=== PATIENT | male | born 1955 | race Caucasian/White ===

== ENCOUNTER 2024-09-04 07:00 | Outpatient (NON) | payer MEDICARE, SELFPAY ==
--- OUTSIDE RECORDS SUMMARY | 2024-09-05 11:56 | XMS_ITS | Encounter Summary ---
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 Name Role Phone Elio Ortiz MD Primary Care Provider [phone] Reason for Visit * Reason Onset Date Comments Medication Request 08/05/2024 Encounter Details Date Type Department Care Team (Late st Contact Info) Description 08/05/2024 Telephone [facility] [address] [place] [address] Elio Ortiz MD [address] [facility] [address] [place] [address] Medication Request Social History Tobacco Use Types Packs/Day Years Used Date Smoking Tobacco: Never Smokeless Tobacco: Never Alcohol Use Standard Drinks/Week Comments Yes 0 (1 standard drink = 0.6 oz pur e alcohol) AUDIT-C Answer Date Recorded Q1: How often do you have a drink containing alc ohol? 2-4 times a month 03/12/2023 Q2: How many drinks containi ng alcohol do you have on a typical day when you are drinking? 1 or 2 03/12/2023 Q3: How often do you have si x or more drinks on one occasion? 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 No * Telephone Encounter - Natalia Paris MA - 08/05/2024 2:34 PM CDT Attempted to contact pt. No answer. Lvm to return call to office. * Telephone Encounter - Natalia Paris MA - 08/05/2024 9:25 AM CDT Reviewing chart it looks like pt has not been on meloxicam in the past. Is this something you wouldbe willing to prescribed? Reviewing ortho OV note it states Shall his symptoms fail to improve wemay consider an MRI of thigh for further evaluation. Are you aware of how long he would have to wait for another injection or do you recommend that he continue to try and reach out to ortho? Please advise. Thanks * Telephone Encounter - Tracey Singh - 08/05/2024 9:01 AM CDT Medication Question/Clarification Medication Name(s)/Dose: Meloxicam What is the question or clarification needed? Patient is asking if Dr. Ortiz can call in the above medication for his hip pain, he states when he gets the injections but once it wears off he has pain. He asking if he can try the meloxicam to see if it helps. He also states that his last injection with he sports medicine was 05/28/23, he is also asking when he can get another injection because he can't get through to the sports medicine office If needed, Pharmacy(s) medication(s) should be sent to: on file Additional Comments: please call patient to advise if this can be done Does message need to be routed? Yes-Action Needed documented in this encounter Plan of Treatment Not on file documented as of this encounter Visit Diagnoses Not on filedocumented in this encounter Care Teams After School Program Teacher Relationship Specialty Start Date End Date Elio Ortiz MD [address] [place] [address] PCP - General Family Medicine 04/14/19 documented as of this encounter
--- OUTSIDE RECORDS SUMMARY | 2024-09-05 11:56 | XMS_ITS | Clinical Summary ---
Author Organization [address] Address [address] [place] [address] Care Team Providers Care Public Health Representative Name Role Phone Elio Ortiz MD Primary Care Provider [phone] Allergies No known active allergies Medications aspirin 81 mg tablet Take one by mouth one time per day 0 0 007 Active blood glucose diagnostic (glucose blood) stripIndication s:Controlled type 2 diabetes mellitus without complication, without long-term current use of insulin (HCC) Testing TID and PRN 100 each 11 023 Active lancets miscIndications :Controlled type 2 diabetes mellitus without complication, without long-term current use of insulin (HCC) 100 each by other route as directed 100 each 1 023 Active blood-glucose meter (OneTouch Ultra2 Meter) miscIndications :Controlled type 2 diabetes mellitus without complication, without long-term current use of insulin (HCC) USE TO TEST BLOOD SUGAR THREE TIMES A DAY 100 each 3 023 Active ketoconazole (NIZORAL) 2 % shampoo 023 Active sildenafiL, pulm.hypertensi on, (REVATIO) 20 mg tabletIndicatio ns:Erectile dysfunction, unspecified erectile dysfunction type TAKE 1 TABLET(20 MG) BY MOUTH DAILY NEEDED FOR ERECTILE DYSFUNCTION 12 tablet 1 024 Active indapamide (LOZOL) 1.25 mg tabletIndicatio ns:Hypertension , essential TAKE 1 TABLET BY MOUTH EVERY DAY 90 tablet 3 024 Active hydrOXYzine (ATARAX) 25 mg tablet Take 1 tablet (25 mg total) by mouth every 8 (eight) hours as needed for anxiety 30 tablet 1 024 Active atorvastatin (LIPITOR) 40 mg tablet Take 1 tablet (40 mg total) by mouth daily 90 tablet 4 024 2024 Active potassium chloride ER 10 mEq CR tabletIndicatio ns:Hypertension , essential TAKE 1 TABLET BY MOUTH EVERY DAY 100 tablet 1 025 Active atenoloL (TENORMIN) 100 mg tablet TAKE 1 TABLET BY MOUTH EVERY DAY 90 tablet 2 025 Active losartan (COZAAR) 100 mg tabletIndicatio ns:Essential hypertension TAKE 1 TABLET BY MOUTH EVERY DAY 90 tablet 2 025 Active meloxicam (MOBIC) 15 mg tablet Take 1 tablet (15 mg total) by mouth daily 30 tablet 11 025 2025 Active semaglutide (Ozempic) 2 mg/dose (8 mg/3 mL) pen injector injection INJECT 2 MG SUBCUTANEOUSLY ONE TIME PER WEEK 3 mL 1 Active semaglutide (OZEMPIC) 2 mg/dose (8 mg/3 mL) pen injector injection Inject 2 mg under the skin once a week 3 mL 025 2024 Discontinued Active Problems Problem Noted Date Diagnosed Date Primary osteoarthritis of left hip 05/19/2024 Encounter for Medicare annual wellness exam 09/2023 Assessment & Plan (03/18/2024 8:50 AM COSTUME MISTRESS): Visit preventive in nature. We reviewed medications, chronic conditions, risk factors, lifestyle recommendations. Reviewed immunization recommendations. Follow-up in 6 months for chronic conditions and 1 year for annual wellness. Type 2 diabetes mellitus with hyperlipidemia 09/2023 Assessment & Plan (03/18/2024 10:10 AM COSTUME MISTRESS): LDL and triglycerides above goal. Will stop simvastatin and start atorvastatin. Reviewed scheduling and side effects. Will monitor response. Of course reviewed lifestyle recommendations. Screening for prostate cancer 03/18/2024 Assessment & Plan (03/18/2024 8:50 AM COSTUME MISTRESS): PSA stable. Will continue to monitor. Class 2 severe obesity due t o excess calories with serious comorbidity and body mass index (BMI) of 36.0 to 36.9 in adult 03/18/2024 Assessment & Plan (03/18/2024 10:10 AM COSTUME MISTRESS): He will continue to work on dietary improvements and weight loss. Colon cancer screening 03/18/2024 Assessment & Plan (03/18/2024 8:52 AM COSTUME MISTRESS): Will be due for follow-up colonoscopy in May. Referral placed. Chronic left hip pain 03/18/2024 Assessment & Plan (03/18/2024 10:11 AM COSTUME MISTRESS): Neurovascularly intact. Will obtain x-ray. Referral placed to system support specialist. Appreciate their expertise. Hypertension associated with diabetes 09/11/2023 Assessment & Plan (03/18/2024 10:10 AM COSTUME MISTRESS): Well controlled on atenolol, losartan. Reviewed lifestyle recommendations. Will continue to monitor. Assessment & Plan (09/11/2023 9:34 AM CDT): Controlled. Will cut back to 1 tablet of indapamide. Will monitor BP at home. If not at goal will increase to 2 daily. Will continue to monitor renal function. Also highly encouraged heart healthy diet. Anemia 09/11/2023 Assessment & Plan (09/11/2023 9:37 AM CDT): Mild anemia after blood donation. Will recheck CBC upon return. Red flags reviewed. ORTEGA (obstructive sleep apnea) 09/11/2023 Assessment & Plan (03/18/2024 10:09 AM COSTUME MISTRESS): 100% compliant with CPAP and will continue. Follows with sleep medicine specialist. Assessment & Plan (09/11/2023 9:39 AM CDT): 100% compliant with CPAP and will continue. Controlled type 2 diabetes joseline albarado without complication, without long-term current use of insulin 10/17/2022 Assessment & Plan (03/18/2024 10:09 AM COSTUME MISTRESS): Tolerating Ozempic. Would like added benefit of weight loss. Will uptitrate Ozempic to 2 mg weekly and continue monitoring. Monitor blood glucose. Monitor for hypoglycemia. Red flags reviewed. Assessment & Plan (09/11/2023 9:33 AM CDT): Controlled. Continue with Ozempic. Will continue to monitor. Hyperlipidemia 04/26/2015 Overview (08/17/2016): HYPERLIPIDEMIA NEC/NOS Hypertension 04/26/2015 Overview (08/17/2016): HYPERTENSION NOS Anxiety state 04/26/2015 Overview (08/17/2016): ANXIETY STATE NOS Assessment & Plan (03/18/2024 10:11 AM COSTUME MISTRESS): Discussed options. Will initiate p.r.n. hydroxyzine. Reviewed the scheduling and side effects. Red flags reviewed. Will monitor response. 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 No changes. Will continue to monitor. 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 Overview (08/18/2016): ALIZE HEART ANOMALY NEC Encounters Date Type Department Care Team Description 08/05/2024 Orders Only [facility] Primary Care at [address] [address] Elio Ortiz MD 08/05/2024 Telephone [facility] [address] [place] [address] Elio Ortiz MD Medication Request 07/23/2024 Telephone [facility] [place] [address] [place] [address] Elio Ortiz MD Prior Auth (Ozempic) 07/10/2024 9:30 AM COSTUME MISTRESS Office Visit [facility] [address] [address] [place] [address] Elizabeth Nicole MD Obstructive sleep apnea (adult) (pediatric) (Primary Dx); Hypersomnia with sleep apnea; Severe obesity (BMI 35.0-35.9 with comorbidity) (HCC) from Last 3 Months Immunizations Immunization Administration Dates Next Due Influenza, Quad, Adjuvantate d, Intramuscular 02/14/2022 Influenza, Quadrivalent, Hig h Dose, Preservative Free, Intrr 02/21/2021,02/11/2020 Influenza, Quadrivalent, Spl it, Intramuscular 02/09/2023,02/19/2019 Influenza, Quadrivalent, Spl it, Preservative Free, Intradermal 04/26/2015 Influenza, Quadrivalent, Spl it, Preservative Free, Intramuscular 02/14/2018 Influenza, Trivalent, High D ose, Split, Preservative Free, Intramuscular 02/07/2024,02/11/2020,01/29/2019,04/17 Influenza, Unspecified 02/13/2022,02/21/2021 Pfizer SARS-CoV-2 Monovalent Vaccination (12+ Yrs) PURPLE 02/21/2021,07/12/2020,07/12/2020,06/23 Pfizer Sars-Cov-2 Bivalent V accination (12+ YRS) 02/07/2024 Pneumococcal Conjugate PCV 13 02/21/2021, 018 Pneumococcal Polysaccharide PPV23 02/21/2021 RSV Vaccine, Pref, Recombina nt, Subunit, Adjuvanted, PF, IM (Arexvy) 03/07/2023 Td, adsorbed 05/14/1997 Tdap 06/10/2008 ZOSTER LIVE 01/01/2019 ZOSTER Recombinant 04/14/2019,01/01/2019 Surgical History Surgery Date Site/Laterality Comments HERNIA REPAIR Hernia repair TONSILLECTOMY Tonsillectomy OTHER SURGICAL HISTORY 1975 fx R hand: multiple surgery [place] FLUORO GUIDED INJECTION H IP LEFT 05/28/2024 Left Medical History Medical History Date Comments Asthma Asthma Hx Other Medical fx R hand Hyperlipidemia Hypertension ORTEGA on CPAP Family History Medical History Relation Name Comments Other Father Cancer -sarcoma ; Cause of : Cancer -sarcoma Kidney disease Mother Mom Renal disease ; Other Mother Mom RHD; Cause of D eath: RHD Arthritis Sister 2 Sasha Other Sister 2 Sasha Alive and well; Hypertension Sister 3 [place] Hypertension; Relation Name Status Comments Father (Age 68) Mother Mom (Age 42) Sister 1 Alive Sister 2 Sasha Alive Sister 3 [place] Social History Tobacco Use Types Packs/Day Years Used Date Smoking Tobacco: Never Smokeless Tobacco: Never Tobacco Cessation:Counseling Given: Not Answered Alcohol Use Standard Drinks/Week Comments Yes 0 [...] on file Legal Sex Male 3:51 PM COSTUME MISTRESS Gender Identity Not on file Sexual Orientation Not on file Obstetrics History Last Filed Vital Signs Vital Sign Reading Time Taken Comments Blood Pressure 129/80 07/10/2024 9:28 AM COSTUME MISTRESS Pulse 77 07/10/2024 9:28 AM COSTUME MISTRESS Temperature 36.7 C (98 F) 03/18/2024 8:30 AM COSTUME MISTRESS Respiratory Rate 20 03/18/2024 8:30 AM COSTUME MISTRESS Oxygen Saturation 94% 07/10/2024 9:28 AM COSTUME MISTRESS Inhaled Oxygen Concentration - - Weight 109.3 kg (241 lb) 07/10/2024 9:28 AM COSTUME MISTRESS Height 168.9 cm (5' 6.5 ) 07/10/2024 9:28 AM COSTUME MISTRESS Body Mass Index 38.32 07/10/2024 9:28 AM COSTUME MISTRESS Plan of Treatment Health Maintenance Due Date Last Done Comments Hepatitis B Screening 02/01[birth year]1974 DTaP/Tdap/Td Vaccine (2 - Td or Tdap) 06/10/2018 06/10/2008, 05/14/1997 Colon Cancer Screening-Colonoscopy 05/28/2024 05/28/2014 Covid-19 Vaccine (2023-2 5 season) 2024 02/07/2024, 02/07/2024, 06/12/2023, Additional history exists Hemoglobin A1C 09/11/2024 03/14/2024, 08/13, 03/09/2023, Additional history exists Dilated Eye Exam 02/25/2025 02/26/2024, , 02/26/2024, Additional history exists Albumin Creatinine Ratio, Urine 03/14/2025 03/14/2024, 03/09/2023, 02/24/2021 Lipid Panel 03/14/2025 03/14/2024, 08/13, 03/09/2023, Additional history exists eGFR 03/14/2025 03/14/2024, 08/13, 03/09/2023, Additional history exists Depression Screening 03/18/2025 03/18/2024, 09/11/2023, 03/12/2023, Additional history exists Fall Risk Assessment 03/18/2025 03/18/2024, 09/11/2023, 03/12/2023, Additional history exists Foot Exam 03/18/2025 03/18/2024, 10/12, 02/24/2021 Well Visit 65+ 03/18/2025 03/18/2024, 08/14, 03/12/2023, Additional history exists Prostate Cancer Screening-PSA 03/14/2026, 03/15/2022, 07/02/2020, Additional history exists Colon Cancer Screening-CT Colonography Discontinued 05/28/2014 Colon Cancer Screening-DNA Stool Discontinued 05/28/19 Colon Cancer Screening-FIT Discontinued 05/28/2014 Colon Cancer Screening-Sigmoidoscopy Discontinued 05/28/2014 Zoster Vaccine Completed 04/14/2019, 12/13, 01/01/2019 Pneumococcal vaccine 65+ Completed 021, 02/21/2021, 02/14/2018 Hepatitis C Screening Completed 02/24/2021 Influenza Vaccine Completed 02/07/2024, , 02/14/2022, Additional history exists Procedures Procedure Name Priority Date/Time Associated Diagnosis Comments EGFR Routine 03/14/2024 8:59 AM CDT Screening for prostate cancer Controlled type 2 diabetes mellitus with stage 3 chronic kidney disease, without long-term current use of insulin (HCC) Hypertension associated with diabetes (HCC) Type 2 diabetes mellitus with hyperlipidemia (HCC) Encounter for Medicare annual wellness exam Anemia, unspecified type Class 2 severe obesity due to excess calories with serious comorbidity and body mass index (BMI) of 36.0 to 36.9 in adult ([facility]) HEMOGLOBIN A1C Routine 03/14/2024 8:59 AM CDT Screening for prostate cancer Controlled type 2 diabetes mellitus with stage 3 chronic kidney disease, without long-term current use of insulin (HCC) Hypertension associated with diabetes (HCC) Type 2 diabetes mellitus with hyperlipidemia (HCC) Encounter for Medicare annual wellness exam Anemia, unspecified type Class 2 severe obesity due to excess calories with serious comorbidity and body mass index (BMI) of 36.0 to 36.9 in adult ([facility]) LIPID PANEL Routine 03/14/2024 8:59 AM CDT Screening for prostate cancer Controlled type 2 diabetes mellitus with stage 3 chronic kidney disease, without long-term current use of insulin (HCC) Hypertension associated with diabetes (HCC) Type 2 diabetes mellitus with hyperlipidemia (HCC) Encounter for Medicare annual wellness exam Anemia, unspecified type Class 2 severe obesity due to excess calories with serious comorbidity and body mass index (BMI) of 36.0 to 36.9 in adult (HCC) ALBUMIN CREATININE RATIO, URINE Routine 03/14/2024 8:59 AM CDT Screening for prostate cancer Controlled type 2 diabetes mellitus with stage 3 chronic kidney disease, without long-term current use of insulin (HCC) Hypertension associated with diabetes (HCC) Type 2 diabetes mellitus with hyperlipidemia (HCC) Encounter for Medicare annual wellness exam Anemia, unspecified type Class 2 severe obesity due to excess calories with serious comorbidity and body mass index (BMI) of 36.0 to 36.9 in adult (HCC) PSA SCREEN Routine 03/14/2024 8:59 AM CDT Screening for prostate cancer Controlled type 2 diabetes mellitus with stage 3 chronic kidney disease, without long-term current use of insulin (HCC) Hypertension associated with diabetes (HCC) Type 2 diabetes mellitus with hyperlipidemia (HCC) Encounter for Medicare annual wellness exam Anemia, unspecified type Class 2 severe obesity due to excess calories with serious comorbidity and body mass index (BMI) of 36.0 to 36.9 in adult (HCC) DIABETIC EYE EXAM Routine 02/26/2024 3:1 0 PM CDT HEPATITIS C ANTIBODY Routine 02/24/2021 10:55 AM CDT Initial Medicare annual wellness visit Encounter for hepatitis C screening test for low risk patient COLONOSCOPY REPORT 05/28/2014 from Last 3 Months or Most Recently Relevant to Health Maintenance Results * eGFR (03/14/2024 8:59 AM CDT) eGFR 64 >=60 mL/min/1. 73 m2 Comment: Interpretive Data Reference Interval Normal >/= 90 mL/min/1.73m2 Mildly decreased* 60 - 89 mL/min/1.73m2 Mildly to moderately decreased 45 - 59 mL/min/1.73m2 Moderately to severely decreased 30 - 44 mL/min/1.73m2 Severely decreased 15 - 29 mL/min/1.73m2 Kidney Failure < 15 mL/min/1.73m2 *Relative to young adult level Estimated glomerular filtration rate is determined by the 2020 CKD-EPI equation recommended by the National Kidney Foundation (A Unifying Approach to GFR Estimation: Recommendations of the NKF-ASK Task Force on Reassessing the Inclusion of Race in Diagnosing Kidney Disease, JASN 2020). The CKD-EPI equation should not be used for patients with unstable renal function and has not been validated in children and those over 70. Current interpretive data was last reviewed 2021. Testing performed by: [facility], [address] [place] [address], [place]., [address] Blood 03/14/2024 8:59 AM CDT 03/14/2024 12:16 PM CDT Magali Olson NP LAB BLOOD ORDERABLES Final Result Performing Organization Address City/[facility]/ZIP Co de Phone Number SIL KENDRICK ([place]) [address] [place] [address] * PSA screen (03/14/2024 8:59 AM CDT) PSA-Total 0.51 <=5.40 ng/mL Comment: Interpretive Data AGE SEX REFERENCE INTERVAL 0 minutes-150 years Female None 0 minutes-49 years Male None 50-59 years Male 0-3.90 60-69 years Male 0-5.40 70-79 years Male 0-6.20 80-150 years Male 0-6.20 The Maria De Jesus PSA Total assay procedure was used. Results from different manufacturers or methods may not be comparable. Serial testing should be performed using the same method. Current interpretive data last revised 21. Testing performed by: [address], [address] Blood 03/14/2024 8:59 AM CDT 03/14/2024 12:05 PM CDT Magali Olson NP LAB BLOOD ORDERABLES Final Result Performing Organization Address [facility] de Phone Number SIL KENDRICK ([place]) [address] [facility] [place] [address] * (ABNORMAL) Albumin Creatinine Ratio, Urine (03/14/2024 8:59 AM CDT) Albumin Ur 70.8 mg/L Comment: Interpretive Data No reference range established. Current interpretive data was last revised 2018. Testing performed by: [address] [address] Creatinine Ur 110.5 mg/dL SIL KENDRICK ([place]) Comment: Interpretive Data No reference range established. Current interpretive data was last revised 2018. Testing performed by: [facility], [address], [place]., [address] Albumin Creatinine Ratio, Ur 64(H) 1 - 29 mg/g SIL KENDRICK ([place]) Comment:Testing performed by : [facility], [address] [place] [address]., [address] Urine 03/14/2024 8:59 AM CDT 03/14/2024 12:05 PM CDT Magali Olson NP LAB URINE ORDERABLES Final Result SIL KENDRICK ([place]) [address] [facility] [place] [address] * (ABNORMAL) Hemoglobin A1c (03/14/2024 8:59 AM CDT) Hgb A1C 6.3(H) 4.0 - 5.6 % Comment:Testing performed by : [facility], [address] [place] [address]., [address] Estimated Average Glucose 134 mg/dL SIL KENDRICK ([place]) Comment: The ADA recommends reporting an estimated Average Glucose (eAG) with all Hemoglobin A1c results using the equation derived from a study of 507 normal and diabetic adults. Minority populations were underrepresented and children were not included. (Diabetes Care 31:0209-7746, 2008). The eAG is not equivalent to a fasting glucose. Testing performed by: [facility], [address] [place] [address]., [address] Blood 03/14/2024 8:59 AM CDT 03/14/2024 12:05 PM CDT Magali Olson NP LAB BLOOD ORDERABLES Final Result Performing Organization Address City/[facility]/ZIP Co de Phone Number SIL KENDRICK ([place]) [address] [facility] [place] [address] * (ABNORMAL) Lipid panel (03/14/2024 8:59 AM CDT) Cholesterol 167 30 - 199 mg/dL Comment: Interpretive Data Ages < or = 19 years Acceptable: <170 mg/dL Borderline high: 170-199 mg/dL High: >or= 200 mg/dL Ages > or = 20 years Desirable: <200 mg/dL Borderline high: 200-239 mg/dL High: >or= 240 mg/dL Literature References: 1. Expert Panel on Integrated Guidelines for Cardiovascular Health and Risk Reduction in Children and Adolescents. Pediatrics 2011;128:S213 2. NCEP Expert Panel. Circulation 2004;110:227 Current Interpretive Data was last revised on 2018. Testing performed by: [facility], [address] [place] [address]., [address] Triglycerides 280(H) <=149 mg/dL [facility] ([place]) Comment: Interpretive Data Ages < or = 9 years Acceptable: <75 mg/dL Borderline high: 75-99 mg/dL High: >or= 100 mg/dL Ages 10 to 20 years Acceptable: <90 mg/dL Borderline high: 90-129 mg/dL High: >or= 130 mg/dL Ages > or = 20 years Desirable: <150 mg/dL Borderline high: 150-199 mg/dL High: 200-499 mg/dL Very high: >or= 499 mg/dL Literature References: 1. Expert Panel on Integrated Guidelines for Cardiovascular Health and Risk Reduction in Children and Adolescents. Pediatrics 2011;128:S213 2. NCEP Expert Panel. Circulation 2004;110:227 Current Interpretive Data was last revised on 2018. Testing performed by: [address] [address] HDL 34(L) >=40 mg/dL [facility] ([place]) Comment: Interpretive Data Ages < or = 19 years Acceptable: >45 mg/dL Borderline low: 40-45 mg/dL Low: <40 mg/dL Ages > or = 20 years Desirable: >or= 60 mg/dL Low: <40 mg/dL Literature References: 1. Expert Panel on Integrated Guidelines for Cardiovascular Health and Risk Reduction in Children and Adolescents. Pediatrics 2011;128:S213 2. NCEP Expert Panel. Circulation 2004;110:227 Current Interpretive Data was last revised on 2018. Testing performed by: [address] [address] LDL, calculated 86 <=129 mg/dL [facility] ([place]) Comment: Interpretive Data Ages < or = 19 years Acceptable: <110 mg/dL Borderline high: 110-129 mg/dL High: >or= 130 mg/dL Ages > or = 20 years Optimal: <100 mg/dL Near optimal: 100-129 mg/dL Borderline high: 130-159 mg/dL High: >160 mg/dL Calculated using the Harmeet LDL-C estimating equation. This equation was implemented on 2024. Prior to this date LDL-C was estimated using the Friedewald equation. Literature References: 1. Expert Panel on Integrated Guidelines for Cardiovascular Health and Risk Reduction in Children and Adolescents. Pediatrics 2011;128:S213 2. NCEP Expert Panel. Circulation 2004;110:227 3. Harmeet M et al. [place] Cardiol. 2020 September 11;5(5):540-548. doi: 10.1001/jamacardio.2020.0013 Current Interpretive Data was last revised on 2024. Testing performed by: [address] [address] Non-HDL Cholesterol 133 mg/dL SIL KENDRICK ([place]) Comment: Interpretive Data Ages < or = 19 years Acceptable: <120 mg/dL Borderline high: 120-144 mg/dL High: >145 mg/dL Ages > or = 20 years When triglycerides are >200 mg/dL, Non-HDL cholesterol is a secondary target of therapy with treatment goals that are 30 mg/dL greater than the LDL cholesterol target. Literature References: 1. Expert Panel on Integrated Guidelines for Cardiovascular Health and Risk Reduction in Children and Adolescents. Pediatrics 2011;128:S213 2. NCEP Expert Panel. Circulation 2004;110:227 Current Interpretive Data was last revised on 2018. Testing performed by: [facility], [address] [place] [address]., [address] Chol/HDL ratio 5 ART KENDRICK ([place]) Comment:Testing performed by : [facility], [address] [place] [address]., [address] Blood 03/14/2024 8:59 AM CDT 03/14/2024 12:05 PM CDT us Magali Olson NP LAB BLOOD ORDERABLES Final Result SIL KENDRICK ([place]) [address] [facility] Department [place] [address] * Diabetic Eye Exam (02/26/2024 3:10 PM CDT) Result [facility] Historical Provider HEALTH MAINTENANCE Final Result * Hepatitis C antibody (02/24/2021 10:55 AM CDT) Hep C Ab Nonreactive Nonreactive [facility]IL [facility] Comment: Interpretive Data Nonreactive: Antibodies to HCV not detected. Does NOT exclude the possibility of recent exposure to HCV. Equivocal: Equivocal for HCV antibodies. Supplemental molecular testing will be automatically performed to determine infection status in accordance with current CDC screening recommendations. Reactive: Positive for HCV antibodies. This may represent current or past HCV infection. Supplemental molecular testing will be automatically performed to determine current infection status in accordance with current CDC screening recommendations. Interpretive data was last revised on 2019. Blood 02/24/2021 10:5 5 AM CDT 02/24/2021 5:36 PM CDT Result [facility] Magali Olson NP LAB MICROBIOLOGY - GENERAL ORDERABLES Final Result SIL WEST [address] Department [place] [address] * COLONOSCOPY REPORT (05/28/2014) Anatomical Region Laterality Modality Other Narrative 05/28/2014 Ordered by an unspecified provider. Result [facility] Historical Provider GI PROCEDURE ORDERABLES F inal Result from Last 3 Months or Most Recently Relevant to Health Maintenance Insurance [facility] [place] [address] [address] [place] [address] [employer] MEDICARE GOLD Care Teams Public Health Representative Relationship Specialty Start Date End Date Elio Ortiz MD [address] [place] [address] PCP - General Family Medicine 04/14/19
--- OUTSIDE RECORDS SUMMARY | 2024-09-05 11:56 | XMS_ITS | Clinical Summary ---
Author Organization [facility] [address] [place] [address] [place] [id number] Care Team Providers Care In Store Demonstrator Name Role Phone Elio Ortiz MD Primary Care Provider [phone] Immunizations Immunization Administration Dates Next Due (PFIZER)(12 YR UP) COVID-19 VACCINE - EMERGENCY USE AUTHORIZATION, MRNA, [id number](PF) 30 MCG/0.3 ML IM SUSP 07/12/2020,06/23/2020 Social History Tobacco Use Types Packs/Day Years Used Date Smoking Tobacco: Never Assessed Sex and Gender Information Value Date Recorded Sex Assigned at Not on file Legal Sex Male 10:55 PM CDT Gender Identity Not on file Sexual Orientation Not on file Plan of Treatment Health Maintenance Due Date Last Done Comments DTAP/TDAP/TD VACCINES (1 - Tdap) 02/01/1975 COLORECTAL SCREENING 02/01/2001 Colorectal Cancer Screening 02/01/2001 FIT-DNA Q 3 years 02/01/2001 FIT/FOBT Q 1 year 02/01/2001 Flex Sig/CT Colonography Q 5 years 02/01/2001 PNEUMOCOCCAL VACCINE 50+ YEA RS (1 of 1 - PCV) 02/01/2006 ZOSTER VACCINE (1 of 2) 02/01/2006 INFLUENZA VACCINE (#1) 2023 COVID-19 Vaccine (3 - 2023- season) 01/13/202405/2020, 06/23/2020 RSV VACCINE (60+ or ) (1 - 1-dose 75+ series) 02/01/2031 Insurance [employer] BLUE PREFERRED Care Teams In Store Demonstrator Relationship Specialty Start Date End Date Elio Ortiz MD PCP - General Family Practice 07/12/20
--- OUTSIDE RECORDS SUMMARY | 2024-09-05 11:56 | XMS_ITS | Referral Summary ---
Author Organization [address] Address [address] [place] [address] Care Team Providers Care Motor Equipment Captain Name Role Phone Elio Ortiz MD Primary Care Provider [phone] Encounters Date Type Department Care Team Description 08/05/2024 Orders Only [facility] Primary Care at [address] [address] Elio Ortiz MD 08/05/2024 Telephone [facility] [address] [address] Elio Ortiz MD Medication Request 07/23/2024 Telephone [facility] [address] [address] Elio Ortiz MD Prior Auth (Ozempic) 07/10/2024 9:30 AM AUTOPSY PATHOLOGIST Office Visit [facility] [address] [facility] [address] [address] Elizabeth Nicole MD Obstructive sleep apnea (adult) (pediatric) (Primary Dx); Hypersomnia with sleep apnea; Severe obesity (BMI 35.0-35.9 with comorbidity) (HCC) from Last 3 Months Allergies No known active allergies Medications aspirin 81 mg tablet Take one by mouth one time per day 0 0 007 Active blood glucose diagnostic (glucose blood) stripIndication s:Controlled type 2 diabetes mellitus without complication, without long-term current use of insulin ([facility]) Testing TID and PRN 100 each Active lancets miscIndications :Controlled type 2 diabetes mellitus without complication, without long-term current use of insulin ([facility]) 100 each by other route as directed 100 each 023 Active blood-glucose meter (OneTouch Ultra2 Meter) miscIndications :Controlled type 2 diabetes mellitus without complication, without long-term current use of insulin ([facility]) USE TO TEST BLOOD SUGAR THREE TIMES [...] as needed for anxiety 30 tablet 1 Active atorvastatin (LIPITOR) 40 mg tablet Take 1 tablet (40 mg total) by mouth daily 90 tablet 4 024 2024 Active potassium chloride ER 10 mEq CR tabletIndicatio ns:Hypertension , essential TAKE 1 TABLET BY MOUTH EVERY DAY 100 tablet 1 025 Active atenoloL (TENORMIN) 100 mg tablet TAKE 1 TABLET BY MOUTH EVERY DAY 90 tablet 2 Active losartan (COZAAR) 100 mg tabletIndicatio ns:Essential hypertension TAKE 1 TABLET BY MOUTH EVERY DAY 90 tablet 2 Active meloxicam (MOBIC) 15 mg tablet Take 1 tablet (15 mg total) by mouth daily 30 tablet 11 025 2025 Active semaglutide (Ozempic) 2 mg/dose (8 mg/3 mL) pen injector injection INJECT 2 MG SUBCUTANEOUSLY ONE TIME PER WEEK 3 mL 1 025 Active semaglutide (OZEMPIC) 2 mg/dose (8 mg/3 mL) pen injector injection Inject 2 mg under the skin once a week 3 mL 025 2024 Discontinued Active Problems Problem Noted Date Diagnosed Date Primary osteoarthritis of left hip 05/19/2024 Encounter for Medicare annual wellness exam 09/2023 Assessment & Plan (03/18/2024 8:50 AM AUTOPSY PATHOLOGIST): Visit preventive in nature. We reviewed medications, chronic conditions, risk factors, lifestyle recommendations. Reviewed immunization recommendations. Follow-up in 6 months for chronic conditions and 1 year for annual wellness. Type 2 diabetes mellitus with hyperlipidemia 09/2023 Assessment & Plan (03/18/2024 10:10 AM AUTOPSY PATHOLOGIST): LDL and triglycerides above goal. Will stop simvastatin and start atorvastatin. Reviewed scheduling and side effects. Will monitor response. Of course reviewed lifestyle recommendations. Screening for prostate cancer 03/18/2024 Assessment & Plan (03/18/2024 8:50 AM AUTOPSY PATHOLOGIST): PSA stable. Will continue to monitor. Class 2 severe obesity due t o excess calories with serious comorbidity and body mass index (BMI) of 36.0 to 36.9 in adult 03/18/2024 Assessment & Plan (03/18/2024 10:10 AM AUTOPSY PATHOLOGIST): He will continue to work on dietary improvements and weight loss. Colon cancer screening 03/18/2024 Assessment & Plan (03/18/2024 8:52 AM AUTOPSY PATHOLOGIST): Will be due for follow-up colonoscopy in May. Referral placed. Chronic left hip pain 03/18/2024 Assessment & Plan (03/18/2024 10:11 AM AUTOPSY PATHOLOGIST): Neurovascularly intact. Will obtain x-ray. Referral placed to transition specialist. Appreciate their expertise. Hypertension associated with diabetes 09/11/2023 Assessment & Plan (03/18/2024 10:10 AM AUTOPSY PATHOLOGIST): Well controlled on atenolol, losartan. Reviewed lifestyle [...] 09/11/2023 Assessment & Plan (03/18/2024 10:09 AM AUTOPSY PATHOLOGIST): 100% compliant with CPAP and will continue. Follows with sleep medicine specialist. Assessment & Plan (09/11/2023 9:39 AM CDT): 100% compliant with CPAP and will continue. Controlled type 2 diabetes joseline albarado without complication, without long-term current use of insulin 10/17/2022 Assessment & Plan (03/18/2024 10:09 AM AUTOPSY PATHOLOGIST): Tolerating Ozempic. Would like added benefit of [...] NOS Assessment & Plan (03/18/2024 10:11 AM AUTOPSY PATHOLOGIST): Discussed options. Will initiate p.r.n. hydroxyzine. Reviewed the scheduling and side effects. Red flags reviewed. Will monitor response. 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 No changes. Will continue to monitor. 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 Overview (08/18/2016): [facility] ANOMALY NEC Immunizations Immunization Administration Dates Next Due Influenza, [...] 06/10/2008 ZOSTER LIVE 01/01/2019 ZOSTER Recombinant 04/14/2019,01/01/2019 Social History Tobacco Use Types Packs/Day Years [...] on file Legal Sex Male 3:51 PM AUTOPSY PATHOLOGIST Gender Identity Not on file Sexual Orientation Not on file Last Filed Vital Signs Vital Sign Reading Time Taken Comments Blood Pressure 129/80 07/10/2024 9:28 AM AUTOPSY PATHOLOGIST Pulse 77 07/10/2024 9:28 AM AUTOPSY PATHOLOGIST Temperature 36.7 C (98 F) 03/18/2024 8:30 AM AUTOPSY PATHOLOGIST Respiratory Rate 20 03/18/2024 8:30 AM AUTOPSY PATHOLOGIST Oxygen Saturation 94% 07/10/2024 9:28 AM AUTOPSY PATHOLOGIST Inhaled Oxygen Concentration - - Weight 109.3 kg (241 lb) 07/10/2024 9:28 AM AUTOPSY PATHOLOGIST Height 168.9 cm (5' 6.5 ) 07/10/2024 9:28 AM AUTOPSY PATHOLOGIST Body Mass Index 38.32 07/10/2024 9:28 AM AUTOPSY PATHOLOGIST Plan of Treatment Not on file Procedures Procedure Name Priority Date/Time Associated Diagnosis [...] of 36.0 to 36.9 in adult (HCC) HEMOGLOBIN A1C Routine 03/14/2024 8:59 AM CDT [...] of 36.0 to 36.9 in adult (HCC) LIPID PANEL Routine 03/14/2024 8:59 AM CDT [...] was last reviewed 2021. Testing performed by: [facility], [address] [place] [address]., [id number] Blood 03/14/2024 8:59 AM CDT 03/14/2024 12:16 PM CDT us Magali Olson NP LAB BLOOD ORDERABLES Final Result Performing Organization Address City/State/[facility] Co de Phone Number [facility] [place]) [address] [facility] Department [place] [address] * PSA screen (03/14/2024 8:59 AM CDT) [...] data last revised 21. Testing performed by: [facility], [address] [place] [address]., [id number] Blood 03/14/2024 8:59 AM CDT 03/14/2024 12:05 PM CDT Magali Olson NP LAB BLOOD ORDERABLES Final Result Performing Organization Address City/[facility]/ZIP Co de Phone Number SIL KENDR[facility] ([place]) [address] [facility] [place] [address] * (ABNORMAL) Albumin Creatinine Ratio, Urine (03/14/2024 8:59 AM CDT) Albumin Ur 70.8 mg/L Comment: Interpretive Data No reference range established. Current interpretive data was last revised 2018. Testing performed by: [facility], [address] [place] [address]., [id number] Creatinine Ur 110.5 mg/dL [facility] ([place]) Comment: Interpretive Data No reference range established. Current interpretive data was last revised 2018. Testing performed by: [facility], [address] [place] [address]., [id number] Albumin Creatinine Ratio, Ur 64(H) 1 - 29 mg/g [facility] ([place]) Comment:Testing performed by : [facility], [address] [place] [address]., [id number] Urine 03/14/2024 8:59 AM CDT 03/14/2024 12:05 PM CDT us Magali Olson NP LAB URINE ORDERABLES Final Result Performing Organization Address City/[facility]/ZIP Co de Phone Number [facility]DR[facility] ([place]) [address] [facility] [place] [address] * (ABNORMAL) Hemoglobin A1c (03/14/2024 8:59 AM CDT) Hgb A1C 6.3(H) 4.0 - 5.6 % Comment:Testing performed by : [facility], [address] [place] [address]., [id number] Estimated Average Glucose 134 mg/dL [facility] ([place]) Comment: The ADA recommends reporting an estimated Average Glucose (eAG) with all Hemoglobin A1c results using the equation derived from a study of 507 normal and diabetic adults. Minority populations were underrepresented and children were not included. (Diabetes Care 31:9658-7908, 2008). The eAG is not equivalent to a fasting glucose. Testing performed by: [facility], [address] [place] [address]., [id number] Blood 03/14/2024 8:59 AM CDT 03/14/2024 12:05 PM CDT Magali Oslon NP LAB BLOOD ORDERABLES Final Result [facility] ([place]) [address] [facility] Department [place] [address] * (ABNORMAL) Lipid panel (03/14/2024 8:59 AM CDT) [facility] Signature Cholesterol 167 30 - 199 mg/dL Comment: [...] last revised on 2018. Testing performed by: [facility], [address] [place] [address]., [id number] Triglycerides 280(H) <=149 mg/dL [facility]DR[facility] ([place]) Comment: Interpretive Data [...] last revised on 2018. Testing performed by: [facility], [address] [place] [address]., [id number] HDL 34(L) >=40 mg/dL [facility] ([place]) Comment: Interpretive Data [...] last revised on 2018. Testing performed by: [facility], [address] [place] [address]., [id number] LDL, calculated 86 <=129 mg/dL [facility]DR[facility] ([place]) Comment: Interpretive Data [...] NCEP Expert Panel. Circulation 2004;110:227 3. Harmeet Dodge al. [place] Cardiol. 2020 September 11;5(5):540-548. doi: 10.1001/[email or web address] Current Interpretive Data was last revised on 2024. Testing performed by: [address] [address] Non-HDL Cholesterol 133 mg/dL [facility] ([place]) Comment: Interpretive Data Ages < or = [...] last revised on 2018. Testing performed by: [facility], [address] [place] [address]., [id number] Chol/HDL ratio 5 ART KENDRICK ([place]) Comment:Testing performed by : [facility], [address] [place] [address]., [id number] Blood 03/14/2024 8:59 AM CDT 03/14/2024 12:05 PM CDT Magali Olson NP LAB BLOOD ORDERABLES Final Result [facility] ([place]) [address] [facility] Department of Laboratories [place], [place] [id number] * Diabetic Eye Exam (02/26/2024 3:10 PM CDT) Historical Provider MD HEALTH MAINTENANCE Final Result * Hepatitis C antibody (02/24/2021 10:55 AM CDT) Pathologist [facility] Hep C Ab Nonreactive Nonreactive [facility] [...] 5 AM CDT 02/24/2021 5:36 PM CDT Magali Olson [facility] MICROBIOLOGY - [place]AL [place] [address] [address] Department [place] [address] * COLONOSCOPY REPORT (05/28/2014) Anatomical Region Laterality Modality Other Narrative 05/28/2014 Ordered by an unspecified provider. Historical Provider GI PROCEDURE ORDERABLES F inal Result from Last 3 Months or Most Recently Relevant to Health Maintenance Insurance [employer] MEDICARE GOLD Care Teams Motor Equipment Captain Relationship Specialty Start Date End Date [place] [address] PCP - General Family Medicine 04/14/19
== END 2024-09-04 07:01 | disposition home or self-care (01) ==
PROVIDERS: Visit Provider Plastic Surgery
DX: C44.92 Squamous cell carcinoma of skin, unspecified (principal)
CPT/HCPCS: 88305